=== PATIENT | male | born 1970 | race African-American/Black ===

== ENCOUNTER 2023-10-26 19:49 | Inpatient (IN) | payer SELFPAY ==
[~2023-10-26] VITALS: Ht 162.6 cm; Wt 74.9 kg
[2023-10-26 20:40] LABS: BASO % 0.4 % (0.0-1.0); EOS # 0.1 10^3/uL (0.0-0.5); EOS % 1.6 % (0.0-3.0); HEMATOCRIT 51.3 % (42.0-52.0); HEMOGLOBIN 17.2 g/dl (13.5-17.5); LYMPH % 59.6 % (24.0-44.0); MEAN CORPUSCULAR HEMOGLOBIN 27.8 pg (27.0-33.0); MEAN CORPUSCULAR HGB CONC 33.5 g/dl (32.0-36.5); MEAN CORPUSCULAR VOLUME 82.9 fl (80.0-96.0); MONO # 0.6 10^3/uL (0.0-0.8); MONO % 9.3 % (2.0-8.0); NEUTROPHILS # 1.9 10^3/uL (1.5-8.5); PLATELET COUNT, AUTOMATED 279 10^3/uL (150-450); RED BLOOD COUNT 6.19 10^6/uL (4.30-6.10); WHITE BLOOD COUNT 6.7 10^3/uL (4.0-10.0)
[2023-10-26 21:06] LABS: CK-MB VALUE MASS 1.1 NG/ML (<3.6)
[2023-10-26 21:08] LABS: ALBUMIN 3.8 G/DL (3.2-5.2); ALKALINE PHOSPHATASE 58 U/L (46-116); ALT/SGPT 66 U/L (7.0-40); AST/SGOT 26 U/L (<34); BILIRUBIN,DIRECT 0.2 MG/DL (<0.4); BILIRUBIN,TOTAL 0.6 MG/DL (0.3-1.2); BLOOD UREA NITROGEN 12 MG/DL (9-23); CALCIUM LEVEL 10.3 MG/DL (8.5-10.1); CARBON DIOXIDE LEVEL 30 MMOL/L (20-31); CHLORIDE LEVEL 105 MMOL/L (98-107); CREATININE FOR GFR 1.02 MG/DL (0.70-1.30); GLOMERULAR FILTRATION RATE > 60.0 (>56); GLUCOSE, FASTING 84 MG/DL (60-100); POTASSIUM SERUM 4.1 MMOL/L (3.5-5.1); SODIUM LEVEL 139 MMOL/L (136-145); TOTAL PROTEIN 7.7 G/DL (5.7-8.2)
[2023-10-26 21:10] LABS: THYROID STIMULATING HORMONE 2.905 uIU/ML (0.55-4.78)
[2023-10-26 21:12] LABS: CPK CREATINE PHOSPHOKINASE 131 U/L (46-171); MB/CK RELATIVE INDEX 0.83 (< OR =4)
[2023-10-26] MEDS: hydrALAZINE 20MG/ML 1ML VIAL IV ONE (21:16)
[2023-10-26] MEDS: hydrALAZINE 20MG/ML 1ML VIAL IV STA (22:24)
[2023-10-26] MEDS ORDERED: ISOVUE-370 76% 100ML VIAL As Ordered ONE (23:33)
[2023-10-27] MEDS: ASPIRIN 81MG CHEW TABLET PO ONE (02:22)
[2023-10-27] MEDS ORDERED: LABETALOL 100MG/20ML VIAL As Ordered ONE (02:36)
[2023-10-27] MEDS: LABETALOL 100MG/20ML VIAL IV STA (02:48)
[2023-10-27] MEDS ORDERED: hydrALAZINE 20MG/ML 1ML VIAL IV PRN (07:20)
[2023-10-27 07:39] LABS: CHOLESTEROL RISK RATIO 3.13 (<5); HDL CHOLESTEROL 34.5 MG/DL (>40); LDL CHOLESTEROL 53.1 MG/DL (<100); NON-HDL-C 73.5 MG/DL
[2023-10-27 08:49] LABS: INR 1.06; PARTIAL THROMBOPLASTIN TIME 26.9 SECONDS (24.8-34.2); PROTHROMBIN TIME 13.5 SECONDS (12.5-14.5)
[2023-10-27] MEDS ORDERED: ASPIRIN 325 MG TAB FT SCH (09:00)
[2023-10-27] MEDS: ATORVASTATIN 20 MG TAB PO SCH (09:20)
[2023-10-27] MEDS: DOCUSATE SODIUM 100MG CAPSULE PO SCH (09:20)
[2023-10-27] MEDS ORDERED: MED REC CURRENTLY UNOBTAINABLE XX SCH (10:35)
[2023-10-27] MEDS: hydrALAZINE 20MG/ML 1ML VIAL IV ONE (12:09)
[2023-10-27] MEDS ORDERED: IBUP200C25 PO (14:02)
[2023-10-27] MEDS ORDERED: ASPI81TA26 PO (14:02)
[2023-10-27] MEDS ORDERED: HYDR-3490 PO (14:02)
[2023-10-27] MEDS ORDERED: AMLO1TAB25 PO (14:02)
[2023-10-27] MEDS ORDERED: OMEP-173 PO (14:02)
[2023-10-27] MEDS ORDERED: CARV3.12 PO (14:02)
[2023-10-27] MEDS ORDERED: HOME MED LIST COMPLETE! XX SCH (14:05)
[2023-10-27 14:53] VITALS: BP 175/99; TEMP 97.3; O2SAT 99
[2023-10-27 15:32] VITALS: BP 167/93
[2023-10-27] MEDS: ENOXAPARIN 40MG/0.4ML SYRINGE (J1650 PER 10MG) SC SCH (15:33)
[2023-10-27 20:15] VITALS: BP 155/97; TEMP 98.1; O2SAT 99
[2023-10-27 23:19] VITALS: BP 132/82; TEMP 98.2; O2SAT 98
[2023-10-28 03:28] VITALS: BP 134/79; TEMP 98.3; O2SAT 99
[2023-10-28 06:11] LABS: HEMOGLOBIN 17.2 g/dl (13.5-17.5); MEAN CORPUSCULAR HEMOGLOBIN 27.3 pg (27.0-33.0); MEAN CORPUSCULAR HGB CONC 33.1 g/dl (32.0-36.5); MEAN CORPUSCULAR VOLUME 82.4 fl (80.0-96.0); PLATELET COUNT, AUTOMATED 283 10^3/uL (150-450); RED BLOOD COUNT 6.31 10^6/uL (4.30-6.10); WHITE BLOOD COUNT 6.7 10^3/uL (4.0-10.0)
[2023-10-28 06:26] LABS: ALBUMIN 3.8 G/DL (3.2-5.2); ALKALINE PHOSPHATASE 60 U/L (46-116); ALT/SGPT 56 U/L (7.0-40); AST/SGOT 26 U/L (<34); BILIRUBIN,TOTAL 1.1 MG/DL (0.3-1.2); BLOOD UREA NITROGEN 23 MG/DL (9-23); CALCIUM LEVEL 9.5 MG/DL (8.5-10.1); CARBON DIOXIDE LEVEL 26 MMOL/L (20-31); CHLORIDE LEVEL 105 MMOL/L (98-107); CREATININE FOR GFR 1.38 MG/DL (0.70-1.30); GLOMERULAR FILTRATION RATE > 60.0 (>56); GLUCOSE, FASTING 115 MG/DL (60-100); POTASSIUM SERUM 4.2 MMOL/L (3.5-5.1); SODIUM LEVEL 139 MMOL/L (136-145); TOTAL PROTEIN 7.3 G/DL (5.7-8.2)
[2023-10-28 07:47] VITALS: BP 126/71; TEMP 97.8; O2SAT 98
[2023-10-28] MEDS ORDERED: ASPIRIN 325 MG TAB PO SCH (09:00)
[2023-10-28] MEDS: METOPROLOL TART 25 MG TABLET PO SCH (09:17)
[2023-10-28] MEDS: INFLUENZA QUADRIVALENT PF VACCINE 0.5ML SYRINGE IM.IMMUN ONE (09:28)
[2023-10-28] MEDS: ASPIRIN 81MG ENTERIC TABLET PO SCH (09:33)
[2023-10-28 11:58] VITALS: BP 132/81; TEMP 97.4; O2SAT 98
[2023-10-28 16:13] VITALS: BP 141/89; TEMP 98.1; O2SAT 99
[2023-10-28 18:39] VITALS: BP 154/93; TEMP 98.2; O2SAT 100
[2023-10-28] MEDS: ACETAMINOPHEN TAB 650MG DOSE (2X325MG) PO ONE (22:44)
[2023-10-28 23:34] VITALS: BP 127/85; TEMP 97.5; O2SAT 98
[2023-10-29] VITALS: BP 127/85; TEMP 97.5; O2SAT 98
[2023-10-29 04:06] VITALS: BP 142/93; TEMP 97.9; O2SAT 98
[2023-10-29 06:26] LABS: HEMATOCRIT 52.5 % (42.0-52.0); HEMOGLOBIN 17.3 g/dl (13.5-17.5); MEAN CORPUSCULAR HEMOGLOBIN 27.7 pg (27.0-33.0); PLATELET COUNT, AUTOMATED 269 10^3/uL (150-450); RED BLOOD COUNT 6.25 10^6/uL (4.30-6.10); WHITE BLOOD COUNT 6.9 10^3/uL (4.0-10.0)
[2023-10-29 06:50] LABS: ALBUMIN 3.8 G/DL (3.2-5.2); ALKALINE PHOSPHATASE 60 U/L (46-116); ALT/SGPT 57 U/L (7.0-40); AST/SGOT 25 U/L (<34); BILIRUBIN,TOTAL 0.9 MG/DL (0.3-1.2); BLOOD UREA NITROGEN 25 MG/DL (9-23); CALCIUM LEVEL 9.6 MG/DL (8.5-10.1); CARBON DIOXIDE LEVEL 27 MMOL/L (20-31); CHLORIDE LEVEL 106 MMOL/L (98-107); CREATININE FOR GFR 1.18 MG/DL (0.70-1.30); GLOMERULAR FILTRATION RATE > 60.0 (>56); GLUCOSE, FASTING 111 MG/DL (60-100); POTASSIUM SERUM 4.3 MMOL/L (3.5-5.1); SODIUM LEVEL 139 MMOL/L (136-145); TOTAL PROTEIN 7.4 G/DL (5.7-8.2)
[2023-10-29] MEDS ORDERED: ASPI81TA26 PO (06:51)
[2023-10-29] MEDS ORDERED: ATOR1TAB21 PO (06:51)
[2023-10-29] MEDS ORDERED: METO1TAB87 PO (06:51)
[2023-10-29] MEDS ORDERED: AMLO1TAB25 PO (06:51)
[2023-10-29] MEDS ORDERED: OMEP-173 PO (06:51)
[2023-10-29 07:32] VITALS: BP 150/96; TEMP 98; O2SAT 100
[2023-10-29 09:40] VITALS: BP 180/99
[2023-10-29 12:00] VITALS: BP 149/92; TEMP 97.8; O2SAT 97
== END 2023-10-29 15:06 | disposition home or self-care (01) | DRG 45 ==
LOC: M ED 19:49 → M ED INP 10-27 03:38 → ENRESERV 10-27 13:49 → M PCU 10-27 14:42
PROVIDERS: ADMIT Internal Medicine; ATTEND Internal Medicine
PROC: B246ZZZ Ultrasonography of Right and Left Heart (ICD-10-PCS; principal; 2023-10-28)
DX: I63.9 Cerebral infarction, unspecified (principal); I10 Essential (primary) hypertension; I16.1 Hypertensive emergency; R20.2 Paresthesia of skin; Z86.73 Personal history of transient ischemic attack (TIA), and cerebral infarction without residual deficits

== ENCOUNTER 2023-12-13 08:02 | Emergency (ER) | payer OTHER, SELFPAY ==
[~2023-12-13] VITALS: Ht 182.9 cm; Wt 73.6 kg
[~2023-12-13 08:02] MED LIST: AMLO1TAB25 PO; ASPI81TA26 PO; ATOR1TAB21 PO; CARV3.12 PO; HYDR-3490 PO; IBUP200C25 PO; METO1TAB87 PO; OMEP-173 PO
[2023-12-13 12:20] LABS: BASO % 0.4 % (0.0-1.0); EOS % 0.9 % (0.0-3.0); HEMATOCRIT 46.2 % (42.0-52.0); HEMOGLOBIN 15.4 g/dl (13.5-17.5); LYMPH # 2.3 10^3/uL (1.5-5.0); LYMPH % 51.8 % (24.0-44.0); MEAN CORPUSCULAR HEMOGLOBIN 27.2 pg (27.0-33.0); MEAN CORPUSCULAR HGB CONC 33.3 g/dl (32.0-36.5); MEAN CORPUSCULAR VOLUME 81.5 fl (80.0-96.0); MONO # 0.5 10^3/uL (0.0-0.8); MONO % 10.4 % (2.0-8.0); NEUTROPHILS # 1.6 10^3/uL (1.5-8.5); NEUTROPHILS % 36.3 % (36.0-66.0); PLATELET COUNT, AUTOMATED 268 10^3/uL (150-450); RED BLOOD COUNT 5.67 10^6/uL (4.30-6.10); WHITE BLOOD COUNT 4.5 10^3/uL (4.0-10.0)
[2023-12-13 12:31] LABS: INR 1.11; PARTIAL THROMBOPLASTIN TIME 26.2 SECONDS (24.8-34.2)
[2023-12-13] MEDS ORDERED: ISOVUE-370 76% 100ML VIAL As Ordered ONE (12:35)
[2023-12-13 12:49] LABS: URIC ACID 6.3 MG/DL (3.7-9.2)
[2023-12-13 12:50] LABS: CK-MB VALUE MASS < 1.0 NG/ML (<3.6)
[2023-12-13 12:52] LABS: CPK CREATINE PHOSPHOKINASE 206 U/L (46-171); MB/CK RELATIVE INDEX 0.48 (< OR =4)
[2023-12-13 12:53] LABS: ALBUMIN 3.7 G/DL (3.2-5.2); ALKALINE PHOSPHATASE 58 U/L (46-116); ALT/SGPT 62 U/L (7.0-40); AST/SGOT 26 U/L (<34); BLOOD UREA NITROGEN 11 MG/DL (9-23); CARBON DIOXIDE LEVEL 28 MMOL/L (20-31); CHLORIDE LEVEL 106 MMOL/L (98-107); CREATININE FOR GFR 1.08 MG/DL (0.70-1.30); GLOMERULAR FILTRATION RATE > 60.0 (>56); GLUCOSE, FASTING 103 MG/DL (60-100); MAGNESIUM LEVEL 2.1 MG/DL (1.8-2.4); POTASSIUM SERUM 4.1 MMOL/L (3.5-5.1); SODIUM LEVEL 140 MMOL/L (136-145); TOTAL PROTEIN 6.8 G/DL (5.7-8.2)
[2023-12-13 14:07] LABS: CK-MB VALUE MASS 1.1 NG/ML (<3.6); MB/CK RELATIVE INDEX 0.54 (< OR =4)
[2023-12-13] MEDS: ACETAMINOPHEN *IV* 1,000 MG in IV 1 EA IV ONE (14:39)
[2023-12-13 15:09] LABS: CK-MB VALUE MASS 1.5 NG/ML (<3.6)
[2023-12-13 15:12] LABS: MB/CK RELATIVE INDEX 0.68 (< OR =4)
[2023-12-13] MEDS ORDERED: NAPR-837 PO (15:52)
[2023-12-13] MEDS ORDERED: LIDO5DIS41 TOP (15:52)
[2023-12-13] MEDS ORDERED: PEPC40TA12 PO (15:52)
[2023-12-13] MEDS ORDERED: PROT1TAB2 PO (15:52)
[2023-12-13 16:21] VITALS: BP 160/97; TEMP 97.4; O2SAT 97
== END 2023-12-13 16:22 | disposition home or self-care (01) ==
LOC: M ED 08:02
DX: M79.661 Pain in right lower leg (principal); K21.9 Gastro-esophageal reflux disease without esophagitis; I10 Essential (primary) hypertension; E78.5 Hyperlipidemia, unspecified; Z86.73 Personal history of transient ischemic attack (TIA), and cerebral infarction without residual deficits
CPT/HCPCS: 70450; 70496; 70498; 71045; 72040; 72110; 73564; 80047; 80053; 82550; 82553; 83735; 84484; 84550; 85025; 85610; 85730; 93005; 93041; 94760; 96365; 99285; J0131; Q9967

== ENCOUNTER 2024-01-27 12:21 | Inpatient (IN) | payer OTHER, SELFPAY ==
[~2024-01-27] VITALS: Ht 165.1 cm; Wt 72.8 kg
[2024-01-27] MEDS: CHLORTHALIDONE 12.5MG PER 1/2 TABLET PO SCH (09:00)
[2024-01-27] MEDS: PANTOPRAZOLE 40MG TAB (PROTONIX) PO SCH (09:00)
[~2024-01-27 12:21] MED LIST changes: +LIDO5DIS41 TOP; +NAPR-837 PO; +PEPC40TA12 PO; +PROT1TAB2 PO
[2024-01-27] MEDS ORDERED: ISOVUE-370 76% 100ML VIAL As Ordered ONE (14:22)
[2024-01-27 14:44] LABS: BASO % 0.5 % (0.0-1.0); EOS # 0.1 10^3/uL (0.0-0.5); EOS % 1.1 % (0.0-3.0); LYMPH % 53.9 % (24.0-44.0); MEAN CORPUSCULAR HEMOGLOBIN 27.2 pg (27.0-33.0); MEAN CORPUSCULAR HGB CONC 33.3 g/dl (32.0-36.5); MEAN CORPUSCULAR VOLUME 81.6 fl (80.0-96.0); MONO # 0.4 10^3/uL (0.0-0.8); MONO % 7.9 % (2.0-8.0); NEUTROPHILS % 36.4 % (36.0-66.0); PLATELET COUNT, AUTOMATED 241 10^3/uL (150-450); RED BLOOD COUNT 5.88 10^6/uL (4.30-6.10); WHITE BLOOD COUNT 5.6 10^3/uL (4.0-10.0)
[2024-01-27] MEDS: METOPROLOL TART 50 MG TAB PO ONE (14:52)
[2024-01-27 14:56] LABS: INR 1.12; PARTIAL THROMBOPLASTIN TIME 27.1 SECONDS (24.8-34.2); PROTHROMBIN TIME 14.1 SECONDS (12.5-14.5)
[2024-01-27 15:11] LABS: ALBUMIN 3.9 G/DL (3.2-5.2); BILIRUBIN,DIRECT 0.3 MG/DL (<0.4); BILIRUBIN,TOTAL 0.8 MG/DL (0.3-1.2); TOTAL PROTEIN 6.9 G/DL (5.7-8.2)
[2024-01-27 15:14] LABS: FREE T4 1.11 NG/DL (0.89-1.76); THYROID STIMULATING HORMONE 1.171 uIU/ML (0.55-4.78)
[2024-01-27] MEDS: hydrALAZINE 20MG/ML 1ML VIAL IV STA ×2 (15:40→16:50)
[2024-01-27] MEDS: ACETAMINOPHEN 325 MG TAB PO ONE (18:04)
[2024-01-27] MEDS ORDERED: MOM 30ML SUSPENSION UDC PO PRN (19:35)
[2024-01-27] MEDS ORDERED: ASPI-655 PO (22:03)
[2024-01-27] MEDS ORDERED: NAPR-885 PO (22:03)
[2024-01-27] MEDS ORDERED: FAMO40TA3 PO (22:03)
[2024-01-27] MEDS ORDERED: METO50TA7 PO (22:03)
[2024-01-27] MEDS ORDERED: PANT-23 PO (22:03)
[2024-01-27] MEDS ORDERED: ATOR40TA75 PO (22:03)
[2024-01-27] MEDS ORDERED: HOME MED LIST COMPLETE! XX SCH (22:05)
[2024-01-27] MEDS: DOCUSATE SODIUM 100MG CAPSULE PO SCH (22:09)
[2024-01-27] MEDS: METOPROLOL TART 50 MG TAB PO SCH (22:09)
[2024-01-27] MEDS: **hydrALAZINE** 10 MG TAB PO SCH (22:10)
[2024-01-28] MEDS ORDERED: METOPROLOL TART 25 MG TABLET PO ONE (09:00)
[2024-01-28] MEDS: CLOPIDOGREL 75 MG TAB PO SCH (09:00)
[2024-01-28] MEDS: ATORVASTATIN 20 MG TAB PO SCH (09:00)
[2024-01-28] MEDS ORDERED: LIDOCAINE 5% (LIDODERM) PATCH As Ordered ONE (10:18)
[2024-01-28] MEDS ORDERED: FAMOTIDINE 20 MG TAB As Ordered ONE (10:19)
[2024-01-28] MEDS ORDERED: ATORVASTATIN 20 MG TAB As Ordered ONE (10:19)
[2024-01-28] MEDS ORDERED: PANTOPRAZOLE 40MG TAB (PROTONIX) As Ordered ONE (10:19)
[2024-01-28] MEDS ORDERED: METOPROLOL SUCC *XL* 25MG TAB (TopROL *XL*) As Ordered ONE (10:20)
[2024-01-28] MEDS ORDERED: ASPIRIN 81MG ENTERIC TABLET As Ordered ONE (10:20)
[2024-01-28] MEDS: METOPROLOL SUCC *XL* 25MG TAB (TopROL *XL*) PO ONE (10:27)
[2024-01-28] MEDS: FAMOTIDINE 20 MG TAB PO ONE (10:27)
[2024-01-28] MEDS: LIDOCAINE 5% (LIDODERM) PATCH TD ONE (10:27)
[2024-01-28] MEDS: ASPIRIN 81MG CHEW TABLET PO SCH (10:27)
[2024-01-28 11:35] VITALS: BP 158/100; TEMP 98.1; O2SAT 98
[2024-01-28 12:00] VITALS: O2SAT 98
[2024-01-28] MEDS: ENOXAPARIN 40MG/0.4ML SYRINGE (J1650 PER 10MG) SC SCH (15:16)
[2024-01-28 15:20] LABS: BLOOD UREA NITROGEN 15 MG/DL (9-23); CALCIUM LEVEL 9.3 MG/DL (8.5-10.1); CARBON DIOXIDE LEVEL 29 MMOL/L (20-31); CHLORIDE LEVEL 108 MMOL/L (98-107); CREATININE FOR GFR 1.12 MG/DL (0.70-1.30); GLOMERULAR FILTRATION RATE > 60.0 (>56); GLUCOSE, FASTING 159 MG/DL (60-100); POTASSIUM SERUM 3.5 MMOL/L (3.5-5.1); SODIUM LEVEL 141 MMOL/L (136-145)
[2024-01-28] MEDS: PERCOCET 5MG/325MG TAB PO PRN (16:05)
[2024-01-28 18:00] VITALS: BP 158/98; TEMP 98.5; O2SAT 96
[2024-01-28] MEDS: ASPIRIN 325 MG TAB PO ONE (18:58)
[2024-01-28 20:00] VITALS: BP 180/96; TEMP 98.1; O2SAT 77; O2SAT 97
[2024-01-28] MEDS: **hydrALAZINE HCL** 25 MG TAB PO SCH (23:48)
[2024-01-29] VITALS (8 sets, daily range): BP systolic 158–190; BP diastolic 98–118; TEMP 97.7–98.2; O2SAT 93–99
[2024-01-29 07:24] LABS: CHOLESTEROL LEVEL 123 MG/DL (<200); CHOLESTEROL RISK RATIO 3.64 (<5); HDL CHOLESTEROL 33.7 MG/DL (>40); LDL CHOLESTEROL 73.5 MG/DL (<100); NON-HDL-C 89.3 MG/DL; TRIGLYCERIDES LEVEL 79 MG/DL (<150)
[2024-01-29] MEDS: GABAPENTIN 100 MG CAP PO SCH ×2 (08:58→17:50)
[2024-01-29] MEDS: METOPROLOL TART 25 MG TABLET PO SCH (08:59)
[2024-01-29] MEDS ORDERED: METOPROLOL TART 50 MG TAB PO SCH (09:00)
[2024-01-29 09:14] LABS: BLOOD UREA NITROGEN 15 MG/DL (9-23); CALCIUM LEVEL 9.5 MG/DL (8.5-10.1); CARBON DIOXIDE LEVEL 27 MMOL/L (20-31); CHLORIDE LEVEL 107 MMOL/L (98-107); GLOMERULAR FILTRATION RATE > 60.0 (>56); GLUCOSE, FASTING 101 MG/DL (60-100); POTASSIUM SERUM 3.7 MMOL/L (3.5-5.1); SODIUM LEVEL 140 MMOL/L (136-145)
[2024-01-29] MEDS: **hydrALAZINE** 50 MG TAB PO SCH (11:38)
[2024-01-29] MEDS ORDERED: **hydrALAZINE** 50 MG TAB PO SCH (15:00)
[2024-01-29] MEDS: SUCRALFATE 1 GM TAB PO SCH (17:50)
[2024-01-29] MEDS: **hydrALAZINE HCL** 25 MG TAB PO SCH (17:50)
[2024-01-29] MEDS: LIDOCAINE 5% (LIDODERM) PATCH TD SCH (18:30)
[2024-01-29] MEDS: FAMOTIDINE 20 MG TAB PO SCH (20:40)
[2024-01-30] VITALS (13 sets, daily range): BP systolic 160–195; BP diastolic 84–122; TEMP 97.5–98.4; O2SAT 94–100
[2024-01-30] MEDS: CHLORTHALIDONE 25 MG TAB PO SCH (04:29)
[2024-01-30] MEDS: PERCOCET 5MG/325MG TAB PO PRN (06:04)
[2024-01-30 08:15] LABS: BASO % 0.4 % (0.0-1.0); EOS # 0.1 10^3/uL (0.0-0.5); EOS % 1.2 % (0.0-3.0); HEMATOCRIT 53.7 % (42.0-52.0); HEMOGLOBIN 17.6 g/dl (13.5-17.5); LYMPH # 2.4 10^3/uL (1.5-5.0); LYMPH % 47.8 % (24.0-44.0); MEAN CORPUSCULAR HEMOGLOBIN 27.1 pg (27.0-33.0); MEAN CORPUSCULAR HGB CONC 32.8 g/dl (32.0-36.5); MEAN CORPUSCULAR VOLUME 82.6 fl (80.0-96.0); MONO # 0.4 10^3/uL (0.0-0.8); MONO % 8.5 % (2.0-8.0); NEUTROPHILS # 2.1 10^3/uL (1.5-8.5); NEUTROPHILS % 41.9 % (36.0-66.0); PLATELET COUNT, AUTOMATED 273 10^3/uL (150-450)
[2024-01-30 08:41] LABS: BLOOD UREA NITROGEN 12 MG/DL (9-23); CALCIUM LEVEL 9.6 MG/DL (8.5-10.1); CARBON DIOXIDE LEVEL 25 MMOL/L (20-31); CHLORIDE LEVEL 105 MMOL/L (98-107); CREATININE FOR GFR 0.94 MG/DL (0.70-1.30); GLOMERULAR FILTRATION RATE > 60.0 (>56); GLUCOSE, FASTING 101 MG/DL (60-100); MAGNESIUM LEVEL 1.9 MG/DL (1.8-2.4); SODIUM LEVEL 138 MMOL/L (136-145)
[2024-01-30] MEDS: ACETAMINOPHEN TAB 650MG DOSE (2X325MG) PO PRN (08:47)
[2024-01-30] MEDS ORDERED: CHLORTHALIDONE 25 MG TAB PO SCH (09:00)
[2024-01-30] MEDS: hydrALAZINE 20MG/ML 1ML VIAL IV PRN ×2 (10:12→13:02)
[2024-01-30] MEDS: BENZONATATE 100MG CAPSULE PO SCH (10:21)
[2024-01-30] MEDS: MAALOX 30 ML SUSP *UDC PO PRN (10:40)
[2024-01-30] MEDS: **hydrALAZINE** 50 MG TAB PO SCH (12:00)
[2024-01-30] MEDS: SUCRALFATE SUSP 1GM/10ML UD PO SCH (12:00)
[2024-01-30] MEDS ORDERED: cloNIDine 0.2 MG TAB PO SCH (12:00)
[2024-01-30] MEDS ORDERED: cloNIDine 0.1MG TABLET PO SCH (12:00)
[2024-01-30] MEDS: ONDANSETRON 4MG 2ML VIAL IV PRN (12:44)
[2024-01-31 03:36] VITALS: BP 140/70; TEMP 98; O2SAT 97
[2024-01-31 04:49] LABS: BASO % 0.4 % (0.0-1.0); EOS % 0.6 % (0.0-3.0); HEMATOCRIT 54.1 % (42.0-52.0); HEMOGLOBIN 17.9 g/dl (13.5-17.5); LYMPH # 3.2 10^3/uL (1.5-5.0); LYMPH % 44.4 % (24.0-44.0); MEAN CORPUSCULAR HEMOGLOBIN 26.8 pg (27.0-33.0); MEAN CORPUSCULAR HGB CONC 33.1 g/dl (32.0-36.5); MEAN CORPUSCULAR VOLUME 81.1 fl (80.0-96.0); MONO # 0.7 10^3/uL (0.0-0.8); MONO % 9.1 % (2.0-8.0); NEUTROPHILS # 3.3 10^3/uL (1.5-8.5); NEUTROPHILS % 45.4 % (36.0-66.0); PLATELET COUNT, AUTOMATED 304 10^3/uL (150-450); RED BLOOD COUNT 6.67 10^6/uL (4.30-6.10); WHITE BLOOD COUNT 7.2 10^3/uL (4.0-10.0)
[2024-01-31 04:56] LABS: CK-MB VALUE MASS 4.6 NG/ML (<3.6)
[2024-01-31 04:57] LABS: MB/CK RELATIVE INDEX 2.32 (< OR =4)
[2024-01-31 05:10] LABS: ALBUMIN 3.9 G/DL (3.2-5.2); BILIRUBIN,TOTAL 0.9 MG/DL (0.3-1.2); CALCIUM LEVEL 9.6 MG/DL (8.5-10.1); CREATININE FOR GFR 1.41 MG/DL (0.70-1.30); GLOMERULAR FILTRATION RATE 55.6 (>56); MAGNESIUM LEVEL 2.1 MG/DL (1.8-2.4); POTASSIUM SERUM 3.9 MMOL/L (3.5-5.1); TOTAL PROTEIN 7.1 G/DL (5.7-8.2)
[2024-01-31 07:39] VITALS: BP 121/74; TEMP 98; O2SAT 99
[2024-01-31 08:00] LABS: CK-MB VALUE MASS 4.2 NG/ML (<3.6)
[2024-01-31 08:02] LABS: MB/CK RELATIVE INDEX 1.62 (< OR =4)
[2024-01-31] MEDS ORDERED: lisinopriL 40MG TAB PO SCH (09:00)
[2024-01-31] MEDS: NS 500 ML IV ONE (09:41)
[2024-01-31 11:51] VITALS: BP 132/82; TEMP 98.4; O2SAT 96
[2024-01-31 12:44] LABS: CREATININE FOR GFR 1.35 MG/DL (0.70-1.30); GLOMERULAR FILTRATION RATE 58.4 (>56); POTASSIUM SERUM 4.1 MMOL/L (3.5-5.1)
[2024-01-31 15:47] VITALS: BP 133/76; TEMP 98.1; O2SAT 86
[2024-01-31 19:42] VITALS: BP 129/72; TEMP 98.4; O2SAT 97
[2024-02-01] VITALS (8 sets, daily range): BP systolic 130–177; BP diastolic 66–109; TEMP 97.1–98.2; O2SAT 97–98
[2024-02-01] MEDS: **hydrALAZINE** 50 MG TAB PO SCH (14:00)
[2024-02-01] MEDS: METOPROLOL TART 12.5 MG PER 1/2 TAB PO SCH (18:00)
[2024-02-02 04:03] VITALS: BP 154/91; TEMP 97.1; O2SAT 99
[2024-02-02 05:30] VITALS: BP 171/99
[2024-02-02] MEDS ORDERED: GABA-1171 PO (07:15)
[2024-02-02] MEDS ORDERED: CLOP75TA2 PO (07:15)
[2024-02-02] MEDS ORDERED: PANT40TA29 PO (07:15)
[2024-02-02] MEDS ORDERED: PERCOCET PO (07:15)
[2024-02-02] MEDS ORDERED: HYDR50TA46 PO ×2 (07:15→09:00)
[2024-02-02] MEDS ORDERED: AMLO1TAB25 PO (07:15)
[2024-02-02] MEDS ORDERED: CLAR500T97 PO (07:23)
[2024-02-02] MEDS ORDERED: AMOX500T PO (07:23)
[2024-02-02] MEDS ORDERED: BACI1CAP PO (07:23)
[2024-02-02] MEDS ORDERED: METO25TA4 PO (07:27)
[2024-02-02] MEDS ORDERED: SELF1KIT MC (07:27)
[2024-02-02 08:47] VITALS: TEMP 97.4; O2SAT 99
[2024-02-02 09:13] LABS: BASO % 0.8 % (0.0-1.0); EOS % 0.8 % (0.0-3.0); HEMATOCRIT 53.9 % (42.0-52.0); HEMOGLOBIN 17.6 g/dl (13.5-17.5); LYMPH # 2.1 10^3/uL (1.5-5.0); LYMPH % 55.2 % (24.0-44.0); MEAN CORPUSCULAR HEMOGLOBIN 27.2 pg (27.0-33.0); MEAN CORPUSCULAR HGB CONC 32.7 g/dl (32.0-36.5); MEAN CORPUSCULAR VOLUME 83.4 fl (80.0-96.0); MONO # 0.4 10^3/uL (0.0-0.8); MONO % 10.6 % (2.0-8.0); NEUTROPHILS # 1.2 10^3/uL (1.5-8.5); NEUTROPHILS % 32.6 % (36.0-66.0); PLATELET COUNT, AUTOMATED 310 10^3/uL (150-450); RED BLOOD COUNT 6.46 10^6/uL (4.30-6.10); WHITE BLOOD COUNT 3.8 10^3/uL (4.0-10.0)
[2024-02-02 09:39] LABS: BLOOD UREA NITROGEN 17 MG/DL (9-23); CALCIUM LEVEL 9.8 MG/DL (8.5-10.1); CARBON DIOXIDE LEVEL 27 MMOL/L (20-31); CHLORIDE LEVEL 104 MMOL/L (98-107); GLOMERULAR FILTRATION RATE > 60.0 (>56); GLUCOSE, FASTING 121 MG/DL (60-100); POTASSIUM SERUM 4.2 MMOL/L (3.5-5.1); SODIUM LEVEL 137 MMOL/L (136-145)
[2024-02-02 10:11] VITALS: BP 169/93
[2024-02-02 11:54] VITALS: BP 168/96; TEMP 98.1; O2SAT 97
[2024-02-02 12:58] VITALS: BP 149/86
[2024-02-02] MEDS ORDERED: GAVICHW3 PO (14:00)
[2024-02-02] MEDS ORDERED: PANT-23 PO (14:01)
[2024-02-02] MEDS ORDERED: METOPROLOL TART 25 MG TABLET PO SCH (18:00)
[2024-02-03] MEDS ORDERED: METO25TA4 PO (23:43)
[2024-02-03] MEDS ORDERED: BACI1CAP PO (23:43)
[2024-02-03] MEDS ORDERED: GABA-1171 PO (23:43)
[2024-02-03] MEDS ORDERED: HYDR100T26 PO (23:43)
[2024-02-03] MEDS ORDERED: CLAR500T97 PO (23:43)
[2024-02-03] MEDS ORDERED: PERCOCET PO (23:43)
[2024-02-03] MEDS ORDERED: AMOX500C PO (23:43)
[2024-02-03] MEDS ORDERED: CLOP75TA99 PO (23:43)
== END 2024-02-02 15:25 | disposition home or self-care (01) | DRG 45 ==
LOC: EDBD 12:21 → M ED 12:21 → M ED INP 19:31 → M MSPAV 01-28 11:30 → M PCU 01-30 07:52 → OBSVTOIN 01-31 14:10
PROVIDERS: ADMIT Preventive Medicine Undersea and Hyperbaric Medicine; ATTEND Student in an Organized Health Care Education/Training Program
PROC: B246ZZZ Ultrasonography of Right and Left Heart (ICD-10-PCS; principal; 2024-01-28)
DX: I63.81 Other cerebral infarction due to occlusion or stenosis of small artery (principal); N17.9 Acute kidney failure, unspecified; I69.351 Hemiplegia and hemiparesis following cerebral infarction affecting right dominant side; G62.9 Polyneuropathy, unspecified; I16.0 Hypertensive urgency; I10 Essential (primary) hypertension; K21.9 Gastro-esophageal reflux disease without esophagitis; E78.5 Hyperlipidemia, unspecified; Z79.82 Long term (current) use of aspirin; Z79.899 Other long term (current) drug therapy; Z91.148 Patient's other noncompliance with medication regimen for other reason; T50.2X5A Adverse effect of carbonic-anhydrase inhibitors, benzothiadiazides and other diuretics, initial encounter; T46.4X5A Adverse effect of angiotensin-converting-enzyme inhibitors, initial encounter; K29.70 Gastritis, unspecified, without bleeding; J02.9 Acute pharyngitis, unspecified

== ENCOUNTER 2024-02-03 15:51 | Observation (INO) | payer OTHER ==
[~2024-02-03] VITALS: Ht 170.2 cm; Wt 74.2 kg
[~2024-02-03 15:51] MED LIST changes: +AMOX500T PO; +ASPI-655 PO; +ATOR40TA75 PO; +BACI1CAP PO; +CLAR500T97 PO; +CLOP75TA2 PO; +FAMO40TA3 PO; +GABA-1171 PO; +GAVICHW3 PO; +HYDR50TA46 PO; +METO25TA4 PO; +METO50TA7 PO; +NAPR-885 PO; +PANT-23 PO; +PANT40TA29 PO; +PERCOCET PO; +SELF1KIT MC
[2024-02-03 16:22] LABS: BASO % 0.4 % (0.0-1.0); EOS # 0.1 10^3/uL (0.0-0.5); EOS % 1.3 % (0.0-3.0); HEMATOCRIT 48.1 % (42.0-52.0); LYMPH # 2.4 10^3/uL (1.5-5.0); LYMPH % 52.8 % (24.0-44.0); MEAN CORPUSCULAR HEMOGLOBIN 27.9 pg (27.0-33.0); MEAN CORPUSCULAR HGB CONC 33.3 g/dl (32.0-36.5); MEAN CORPUSCULAR VOLUME 83.8 fl (80.0-96.0); MONO # 0.5 10^3/uL (0.0-0.8); MONO % 11.5 % (2.0-8.0); NEUTROPHILS # 1.6 10^3/uL (1.5-8.5); NEUTROPHILS % 33.8 % (36.0-66.0); PLATELET COUNT, AUTOMATED 277 10^3/uL (150-450); RED BLOOD COUNT 5.74 10^6/uL (4.30-6.10); WHITE BLOOD COUNT 4.6 10^3/uL (4.0-10.0)
[2024-02-03 16:54] LABS: BLOOD UREA NITROGEN 15 MG/DL (9-23); CALCIUM LEVEL 8.8 MG/DL (8.5-10.1); CARBON DIOXIDE LEVEL 29 MMOL/L (20-31); CHLORIDE LEVEL 103 MMOL/L (98-107); CK-MB VALUE MASS 2.4 NG/ML (<3.6); CREATININE FOR GFR 1.03 MG/DL (0.70-1.30); GLOMERULAR FILTRATION RATE > 60.0 (>56); GLUCOSE, FASTING 204 MG/DL (60-100); POTASSIUM SERUM 4.6 MMOL/L (3.5-5.1); SODIUM LEVEL 136 MMOL/L (136-145)
[2024-02-03 16:57] LABS: CPK CREATINE PHOSPHOKINASE 137 U/L (46-171); MB/CK RELATIVE INDEX 1.75 (< OR =4)
[2024-02-03 18:01] LABS: ALBUMIN 3.7 G/DL (3.2-5.2); BILIRUBIN,DIRECT 0.2 MG/DL (<0.4); BILIRUBIN,TOTAL 0.4 MG/DL (0.3-1.2); CK-MB VALUE MASS 2.5 NG/ML (<3.6); MB/CK RELATIVE INDEX 1.89 (< OR =4); TOTAL PROTEIN 6.6 G/DL (5.7-8.2)
[2024-02-03] MEDS: METOPROLOL TART 50 MG TAB PO ONE (19:16)
[2024-02-03] MEDS: **hydrALAZINE** 50 MG TAB PO ONE (19:16)
[2024-02-03] MEDS: CLARITHROMYCIN 250 MG TAB PO SCH (21:00)
[2024-02-03] MEDS: GABAPENTIN 100 MG CAP PO SCH (21:00)
[2024-02-03] MEDS: AMOXICILLIN 500 MG CAP PO SCH (21:00)
[2024-02-03] MEDS: LABETALOL 100MG/20ML VIAL IV STA (22:00)
[2024-02-03] MEDS ORDERED: ACETAMINOPHEN TAB 650MG DOSE (2X325MG) PO PRN (23:35)
[2024-02-03] MEDS ORDERED: MOM 30ML SUSPENSION UDC PO PRN (23:35)
[2024-02-03] MEDS ORDERED: CLAR500T97 PO (23:43)
[2024-02-03] MEDS ORDERED: PERCOCET PO (23:43)
[2024-02-03] MEDS ORDERED: METO25TA4 PO (23:43)
[2024-02-03] MEDS ORDERED: HYDR100T26 PO (23:43)
[2024-02-03] MEDS ORDERED: BACI1CAP PO (23:43)
[2024-02-03] MEDS ORDERED: AMOX500C PO (23:43)
[2024-02-03] MEDS ORDERED: CLOP75TA99 PO (23:43)
[2024-02-03] MEDS ORDERED: GABA-1171 PO (23:43)
[2024-02-03] MEDS ORDERED: HOME MED LIST COMPLETE! XX SCH (23:55)
[2024-02-04] MEDS ORDERED: PERCOCET 5MG/325MG TAB PO PRN
[2024-02-04] MEDS: LABETALOL 200 MG TAB PO SCH (00:25)
[2024-02-04 03:18] VITALS: BP 158/91; TEMP 98.1; O2SAT 98
[2024-02-04 07:28] LABS: HEMATOCRIT 47.6 % (42.0-52.0); HEMOGLOBIN 15.5 g/dl (13.5-17.5); MEAN CORPUSCULAR HEMOGLOBIN 27.1 pg (27.0-33.0); MEAN CORPUSCULAR HGB CONC 32.6 g/dl (32.0-36.5); MEAN CORPUSCULAR VOLUME 83.2 fl (80.0-96.0); PLATELET COUNT, AUTOMATED 272 10^3/uL (150-450); RED BLOOD COUNT 5.72 10^6/uL (4.30-6.10); WHITE BLOOD COUNT 3.8 10^3/uL (4.0-10.0)
[2024-02-04 08:01] LABS: BLOOD UREA NITROGEN 11 MG/DL (9-23); CALCIUM LEVEL 9.4 MG/DL (8.5-10.1); CARBON DIOXIDE LEVEL 29 MMOL/L (20-31); CHLORIDE LEVEL 104 MMOL/L (98-107); CREATININE FOR GFR 1.04 MG/DL (0.70-1.30); GLOMERULAR FILTRATION RATE > 60.0 (>56); GLUCOSE, FASTING 106 MG/DL (60-100); MAGNESIUM LEVEL 2.3 MG/DL (1.8-2.4); POTASSIUM SERUM 4.6 MMOL/L (3.5-5.1); SODIUM LEVEL 139 MMOL/L (136-145)
[2024-02-04 08:08] VITALS: BP 167/94; TEMP 97.1; O2SAT 98
[2024-02-04] MEDS ORDERED: LABETALOL 200 MG TAB PO SCH (09:00)
[2024-02-04 09:57] VITALS: BP 159/88
[2024-02-04] MEDS: ENOXAPARIN 40MG/0.4ML SYRINGE (J1650 PER 10MG) SC SCH (09:59)
[2024-02-04] MEDS: CHLORTHALIDONE 25 MG TAB PO SCH (10:00)
[2024-02-04] MEDS: LACTOBACILLUS ACIDOPHILUS CAP (BACID) PO SCH (10:00)
[2024-02-04] MEDS: METOPROLOL TART 25 MG TABLET PO SCH (10:01)
[2024-02-04] MEDS: ASPIRIN 81MG CHEW TABLET PO SCH (10:02)
[2024-02-04] MEDS: PANTOPRAZOLE 40MG TAB (PROTONIX) PO SCH (10:03)
[2024-02-04] MEDS: ATORVASTATIN 20 MG TAB PO SCH (10:03)
[2024-02-04 10:04] VITALS: BP 159/88
[2024-02-04] MEDS: **hydrALAZINE** 50 MG TAB PO SCH (10:04)
[2024-02-04] MEDS: CLOPIDOGREL 75 MG TAB PO SCH (10:04)
[2024-02-04 12:00] VITALS: BP 143/88; TEMP 97.2
[2024-02-04] MEDS ORDERED: CHLO25TA PO (12:05)
[2024-02-04] MEDS ORDERED: FAMOTIDINE 20 MG TAB PO SCH (21:00)
== END 2024-02-04 15:11 | disposition home or self-care (01) ==
LOC: M ED 15:51 → M ED INP 23:31 → M PCU 02-04 01:14
PROVIDERS: ADMIT Internal Medicine; ATTEND Internal Medicine
DX: I16.0 Hypertensive urgency (principal); Z91.148 Patient's other noncompliance with medication regimen for other reason; Z86.73 Personal history of transient ischemic attack (TIA), and cerebral infarction without residual deficits; I10 Essential (primary) hypertension; R00.0 Tachycardia, unspecified; Z79.899 Other long term (current) drug therapy; Z79.2 Long term (current) use of antibiotics; K30 Functional dyspepsia
CPT/HCPCS: 36415; 70450; 71045; 80048; 80076; 82550; 82553; 83735; 84484; 85025; 85027; 93005; 93041; 94760; 96372; 96374; 99285; J1650; J1920

== ENCOUNTER 2024-04-09 13:50 | Inpatient (IN) | payer OTHER ==
[~2024-04-09] VITALS: Ht 167.6 cm; Wt 71.5 kg
[~2024-04-09 13:50] MED LIST changes: +AMOX500C PO; +CHLO25TA PO; +CLOP75TA99 PO; +HYDR100T26 PO
[2024-04-09] MEDS ORDERED: ISOVUE-370 76% 100ML VIAL As Ordered ONE (14:12)
[2024-04-09 14:25] LABS: BASO % 0.4 % (0.0-1.0); EOS # 0.1 10^3/uL (0.0-0.5); EOS % 0.9 % (0.0-3.0); HEMATOCRIT 50.9 % (42.0-52.0); HEMOGLOBIN 16.9 g/dl (13.5-17.5); LYMPH # 3.1 10^3/uL (1.5-5.0); LYMPH % 57.2 % (24.0-44.0); MEAN CORPUSCULAR HEMOGLOBIN 27.3 pg (27.0-33.0); MEAN CORPUSCULAR HGB CONC 33.2 g/dl (32.0-36.5); MEAN CORPUSCULAR VOLUME 82.4 fl (80.0-96.0); MONO # 0.5 10^3/uL (0.0-0.8); MONO % 8.6 % (2.0-8.0); NEUTROPHILS # 1.8 10^3/uL (1.5-8.5); NEUTROPHILS % 32.7 % (36.0-66.0); PLATELET COUNT, AUTOMATED 234 10^3/uL (150-450); RED BLOOD COUNT 6.18 10^6/uL (4.30-6.10); WHITE BLOOD COUNT 5.4 10^3/uL (4.0-10.0)
[2024-04-09 14:37] LABS: INR 0.99; PARTIAL THROMBOPLASTIN TIME 25.4 SECONDS (24.8-34.2); PROTHROMBIN TIME 12.8 SECONDS (12.5-14.5)
[2024-04-09] MEDS: hydrALAZINE 20MG/ML 1ML VIAL IV STA ×3 (14:48→16:08)
[2024-04-09 15:36] LABS: BILIRUBIN,TOTAL 0.5 MG/DL (0.3-1.2); CALCIUM LEVEL 9.4 MG/DL (8.5-10.1); CREATININE FOR GFR 1.38 MG/DL (0.70-1.30); POTASSIUM SERUM 3.3 MMOL/L (3.5-5.1); TOTAL PROTEIN 7.3 G/DL (5.7-8.2)
[2024-04-09] MEDS ORDERED: SUCR1TAB56 PO (18:14)
[2024-04-09] MEDS ORDERED: LISI20TA33 PO (18:14)
[2024-04-09] MEDS ORDERED: HOME MED LIST COMPLETE! XX SCH (18:15)
[2024-04-09] MEDS: cloNIDine 0.2 MG TAB PO ONE (18:51)
[2024-04-09] MEDS: POTASSIUM CHLORIDE 10MEQ SR TABLET PO ONE (19:42)
[2024-04-09] MEDS: hydrALAZINE 20MG/ML 1ML VIAL IV SCH (19:43)
[2024-04-09 19:48] LABS: CHOLESTEROL RISK RATIO 2.7 (<5); HDL CHOLESTEROL 37.4 MG/DL (>40); LDL CHOLESTEROL 51.8 MG/DL (<100); NON-HDL-C 63.6 MG/DL
[2024-04-09] MEDS: PANTOPRAZOLE 40MG VIAL IV SCH (21:33)
[2024-04-09] MEDS: GABAPENTIN 300 MG CAP PO SCH (21:33)
[2024-04-09] MEDS: METOPROLOL TART 50 MG TAB PO SCH (21:34)
[2024-04-09 21:51] VITALS: BP 141/75; TEMP 98.1; O2SAT 98
[2024-04-09] MEDS: DOCUSATE SODIUM 100MG CAPSULE PO SCH (22:19)
[2024-04-09 23:46] VITALS: BP 130/63; TEMP 98.4; O2SAT 98
[2024-04-09] MEDS: cloNIDine 0.2 MG TAB PO SCH (23:54)
[2024-04-10] MEDS: SUCRALFATE SUSP 1GM/10ML UD PO SCH (00:06)
[2024-04-10 03:56] VITALS: BP 117/72; TEMP 98; O2SAT 98
[2024-04-10 06:09] LABS: BASO % 0.4 % (0.0-1.0); EOS % 0.7 % (0.0-3.0); HEMATOCRIT 48.7 % (42.0-52.0); LYMPH # 2.1 10^3/uL (1.5-5.0); LYMPH % 47.4 % (24.0-44.0); MEAN CORPUSCULAR HGB CONC 32.9 g/dl (32.0-36.5); MEAN CORPUSCULAR VOLUME 82.1 fl (80.0-96.0); MONO # 0.5 10^3/uL (0.0-0.8); MONO % 10.9 % (2.0-8.0); NEUTROPHILS # 1.8 10^3/uL (1.5-8.5); NEUTROPHILS % 40.4 % (36.0-66.0); PLATELET COUNT, AUTOMATED 207 10^3/uL (150-450); RED BLOOD COUNT 5.93 10^6/uL (4.30-6.10); WHITE BLOOD COUNT 4.5 10^3/uL (4.0-10.0)
[2024-04-10 06:20] LABS: BLOOD UREA NITROGEN 17 MG/DL (9-23); CALCIUM LEVEL 8.5 MG/DL (8.5-10.1); CARBON DIOXIDE LEVEL 28 MMOL/L (20-31); CHLORIDE LEVEL 107 MMOL/L (98-107); CREATININE FOR GFR 1.15 MG/DL (0.70-1.30); GLOMERULAR FILTRATION RATE > 60.0 (>56); GLUCOSE, FASTING 108 MG/DL (60-100); POTASSIUM SERUM 3.5 MMOL/L (3.5-5.1); SODIUM LEVEL 141 MMOL/L (136-145)
[2024-04-10 08:21] VITALS: BP 132/72; TEMP 97.8; O2SAT 94
[2024-04-10] MEDS ORDERED: GABA-282 PO (08:55)
[2024-04-10] MEDS ORDERED: LISI20TA33 PO (08:55)
[2024-04-10] MEDS ORDERED: PANT40TA29 PO (08:55)
[2024-04-10] MEDS: ENOXAPARIN 40MG/0.4ML SYRINGE (J1650 PER 10MG) SC SCH (10:04)
[2024-04-10] MEDS: ATORVASTATIN 20 MG TAB PO SCH (10:04)
[2024-04-10] MEDS: ASPIRIN 81MG CHEW TABLET PO SCH (10:04)
[2024-04-10 10:05] VITALS: BP 132/72
== END 2024-04-10 13:05 | disposition home or self-care (01) | DRG 199 ==
LOC: M ED 13:50 → M ED INP 17:35 → M PCU 22:16
PROVIDERS: ADMIT Internal Medicine Nephrology; ATTEND Internal Medicine Nephrology
DX: I16.0 Hypertensive urgency (principal); I69.351 Hemiplegia and hemiparesis following cerebral infarction affecting right dominant side; E78.5 Hyperlipidemia, unspecified; K21.9 Gastro-esophageal reflux disease without esophagitis; D49.0 Neoplasm of unspecified behavior of digestive system; Z79.82 Long term (current) use of aspirin; Z79.899 Other long term (current) drug therapy; I10 Essential (primary) hypertension

== ENCOUNTER 2024-04-25 16:32 | Observation (INO) | payer MEDICAID, OTHER ==
[~2024-04-25] VITALS: Ht 160 cm; Wt 71.8 kg
[~2024-04-25 16:32] MED LIST changes: +GABA-1172 PO; +LISI20TA33 PO; +SUCR1TAB56 PO
[2024-04-25 17:37] LABS: BASO % 0.8 % (0.0-1.0); EOS # 0.1 10^3/uL (0.0-0.5); EOS % 1.3 % (0.0-3.0); HEMATOCRIT 49.2 % (42.0-52.0); HEMOGLOBIN 16.3 g/dl (13.5-17.5); LYMPH # 2.9 10^3/uL (1.5-5.0); LYMPH % 54.6 % (24.0-44.0); MEAN CORPUSCULAR HGB CONC 33.1 g/dl (32.0-36.5); MEAN CORPUSCULAR VOLUME 81.6 fl (80.0-96.0); MONO # 0.5 10^3/uL (0.0-0.8); MONO % 9.9 % (2.0-8.0); NEUTROPHILS # 1.7 10^3/uL (1.5-8.5); NEUTROPHILS % 33.2 % (36.0-66.0); PLATELET COUNT, AUTOMATED 266 10^3/uL (150-450); RED BLOOD COUNT 6.03 10^6/uL (4.30-6.10); WHITE BLOOD COUNT 5.2 10^3/uL (4.0-10.0)
[2024-04-25 18:06] LABS: BLOOD UREA NITROGEN 14 MG/DL (9-23); CALCIUM LEVEL 9.3 MG/DL (8.5-10.1); CARBON DIOXIDE LEVEL 27 MMOL/L (20-31); CHLORIDE LEVEL 107 MMOL/L (98-107); CK-MB VALUE MASS 1.1 NG/ML (<3.6); CREATININE FOR GFR 0.92 MG/DL (0.70-1.30); GLOMERULAR FILTRATION RATE > 60.0 (>56); GLUCOSE, FASTING 94 MG/DL (60-100); POTASSIUM SERUM 3.8 MMOL/L (3.5-5.1); SODIUM LEVEL 140 MMOL/L (136-145)
[2024-04-25 18:07] LABS: CPK CREATINE PHOSPHOKINASE 174 U/L (46-171); MB/CK RELATIVE INDEX 0.63 (< OR =4)
[2024-04-25 20:11] LABS: CK-MB VALUE MASS 1.2 NG/ML (<3.6)
[2024-04-25 20:12] LABS: MB/CK RELATIVE INDEX 0.76 (< OR =4)
[2024-04-25] MEDS: hydrALAZINE 20MG/ML 1ML VIAL IV STA (20:51)
[2024-04-25] MEDS ORDERED: hydrALAZINE 20MG/ML 1ML VIAL IV ONE (22:45)
[2024-04-25] MEDS ORDERED: ACETAMINOPHEN 325 MG TAB PO PRN (22:50)
[2024-04-25] MEDS ORDERED: PANT40TA29 PO (23:01)
[2024-04-25] MEDS ORDERED: GABA-1172 PO (23:01)
[2024-04-25] MEDS: LABETALOL 200 MG TAB PO SCH (23:05)
[2024-04-25] MEDS ORDERED: HOME MED LIST COMPLETE! XX SCH (23:05)
[2024-04-26 00:17] VITALS: BP 176/98; TEMP 97.8; O2SAT 98
[2024-04-26] MEDS: PANTOPRAZOLE 40MG TAB (PROTONIX) PO SCH (00:39)
[2024-04-26 04:06] VITALS: BP 162/78; TEMP 97.1; O2SAT 98
[2024-04-26 06:23] LABS: ALBUMIN 3.6 G/DL (3.2-5.2); ALKALINE PHOSPHATASE 57 U/L (46-116); ALT/SGPT 35 U/L (7.0-40); AST/SGOT 18 U/L (<34); BILIRUBIN,TOTAL 1.2 MG/DL (0.3-1.2); BLOOD UREA NITROGEN 11 MG/DL (9-23); CALCIUM LEVEL 9.5 MG/DL (8.5-10.1); CARBON DIOXIDE LEVEL 26 MMOL/L (20-31); CHLORIDE LEVEL 106 MMOL/L (98-107); CREATININE FOR GFR 0.93 MG/DL (0.70-1.30); GLOMERULAR FILTRATION RATE > 60.0 (>56); GLUCOSE, FASTING 109 MG/DL (60-100); POTASSIUM SERUM 3.4 MMOL/L (3.5-5.1); SODIUM LEVEL 141 MMOL/L (136-145); TOTAL PROTEIN 6.6 G/DL (5.7-8.2)
[2024-04-26] MEDS: POTASSIUM CHLORIDE 10MEQ SR TABLET PO ONE (07:56)
[2024-04-26] MEDS: ATORVASTATIN 20 MG TAB PO SCH (07:56)
[2024-04-26] MEDS: ASPIRIN 81MG ENTERIC TABLET PO SCH (07:57)
[2024-04-26] MEDS: GABAPENTIN 300 MG CAP PO SCH (07:57)
[2024-04-26] MEDS: SUCRALFATE 1 GM TAB PO SCH (07:57)
[2024-04-26] MEDS: METOPROLOL TART 50 MG TAB PO SCH (07:58)
[2024-04-26 08:01] VITALS: BP 184/98
[2024-04-26] MEDS ORDERED: amLODIPine 5 MG TAB PO SCH (09:00)
[2024-04-26 11:17] VITALS: BP 160/100
[2024-04-26] MEDS ORDERED: ASPI81TAEC PO (12:02)
[2024-04-26] MEDS ORDERED: LISI10TA22 PO (12:02)
[2024-04-26] MEDS ORDERED: HYDR25TA87 PO (12:02)
[2024-04-26] MEDS ORDERED: AMLO1TAB24 PO (12:05)
[2024-04-26 12:27] VITALS: BP 160/100
[2024-04-26] MEDS: **hydrALAZINE HCL** 25 MG TAB PO ONE (12:27)
[2024-04-26] MEDS ORDERED: **hydrALAZINE HCL** 25 MG TAB PO SCH (16:00)
== END 2024-04-26 13:56 | disposition home health service (06) ==
LOC: M ED 16:32 → EDBD 16:32 → M ED INP 22:46 → M PCU 23:58
PROVIDERS: ADMIT Student in an Organized Health Care Education/Training Program; ATTEND Student in an Organized Health Care Education/Training Program
DX: I16.0 Hypertensive urgency (principal); I10 Essential (primary) hypertension; Z86.73 Personal history of transient ischemic attack (TIA), and cerebral infarction without residual deficits; E78.5 Hyperlipidemia, unspecified; K21.9 Gastro-esophageal reflux disease without esophagitis; G89.4 Chronic pain syndrome; Z79.82 Long term (current) use of aspirin; Z79.899 Other long term (current) drug therapy
CPT/HCPCS: 36415; 70450; 71045; 80048; 80053; 82088; 82550; 82553; 83735; 84244; 84484; 85025; 93005; 93041; 96374; 97161; 99285; J0360

== ENCOUNTER 2024-05-17 10:55 | Observation (INO) | payer OTHER ==
[~2024-05-17] VITALS: Ht 167.6 cm; Wt 73.1 kg
[~2024-05-17 10:55] MED LIST changes: +AMLO1TAB24 PO; +ASPI81TAEC PO; +HYDR25TA87 PO; +LISI10TA22 PO
[2024-05-17 11:56] LABS: BASO % 0.5 % (0.0-1.0); EOS # 0.1 10^3/uL (0.0-0.5); EOS % 1.4 % (0.0-3.0); HEMATOCRIT 48.8 % (42.0-52.0); HEMOGLOBIN 16.3 g/dl (13.5-17.5); LYMPH # 2.2 10^3/uL (1.5-5.0); LYMPH % 53.5 % (24.0-44.0); MEAN CORPUSCULAR HEMOGLOBIN 27.1 pg (27.0-33.0); MEAN CORPUSCULAR HGB CONC 33.4 g/dl (32.0-36.5); MEAN CORPUSCULAR VOLUME 81.1 fl (80.0-96.0); MONO # 0.4 10^3/uL (0.0-0.8); MONO % 8.9 % (2.0-8.0); NEUTROPHILS # 1.5 10^3/uL (1.5-8.5); NEUTROPHILS % 35.5 % (36.0-66.0); PLATELET COUNT, AUTOMATED 267 10^3/uL (150-450); RED BLOOD COUNT 6.02 10^6/uL (4.30-6.10); WHITE BLOOD COUNT 4.2 10^3/uL (4.0-10.0)
[2024-05-17 12:15] LABS: LIPASE 27 U/L (12-53)
[2024-05-17 12:17] LABS: ALBUMIN 3.8 G/DL (3.2-5.2); ALKALINE PHOSPHATASE 58 U/L (40-129); ALT/SGPT 38 U/L (7.0-40); AST/SGOT 16 U/L (<34); BILIRUBIN,DIRECT 0.4 MG/DL (<0.4); BILIRUBIN,TOTAL 1.2 MG/DL (0.3-1.2); BLOOD UREA NITROGEN 11 MG/DL (9-23); CALCIUM LEVEL 9.7 MG/DL (8.5-10.1); CARBON DIOXIDE LEVEL 28 MMOL/L (20-31); CHLORIDE LEVEL 105 MMOL/L (98-107); CK-MB VALUE MASS < 1.0 NG/ML (<3.6); GLOMERULAR FILTRATION RATE > 60.0 (>56); GLUCOSE, FASTING 114 MG/DL (60-100); POTASSIUM SERUM 3.5 MMOL/L (3.5-5.1); SODIUM LEVEL 139 MMOL/L (136-145); TOTAL PROTEIN 7.1 G/DL (5.7-8.2)
[2024-05-17 12:19] LABS: THYROID STIMULATING HORMONE 0.797 uIU/ML (0.55-4.78)
[2024-05-17 12:23] LABS: CPK CREATINE PHOSPHOKINASE 136 U/L (46-171); MB/CK RELATIVE INDEX 0.73 (< OR =4)
[2024-05-17] MEDS: **hydrALAZINE** 50 MG TAB PO ONE (13:03)
[2024-05-17] MEDS: amLODIPine 5 MG TAB PO ONE (13:03)
[2024-05-17 13:17] LABS: CK-MB VALUE MASS < 1.0 NG/ML (<3.6)
[2024-05-17 13:21] LABS: CPK CREATINE PHOSPHOKINASE 138 U/L (46-171); MB/CK RELATIVE INDEX 0.72 (< OR =4)
[2024-05-17] MEDS: hydrALAZINE 20MG/ML 1ML VIAL IV STA (13:32)
[2024-05-17] MEDS ORDERED: MOM 30ML SUSPENSION UDC PO PRN (14:05)
[2024-05-17] MEDS ORDERED: MAALOX 30 ML SUSP *UDC PO PRN (14:05)
[2024-05-17] MEDS ORDERED: AMLO1TAB24 PO (14:46)
[2024-05-17] MEDS ORDERED: LISI30TA4 PO (14:46)
[2024-05-17] MEDS ORDERED: HYDR25TA87 PO (14:46)
[2024-05-17] MEDS ORDERED: HOME MED LIST COMPLETE! XX SCH (14:50)
[2024-05-17] MEDS ORDERED: **hydrALAZINE HCL** 25 MG TAB PO SCH (16:00)
[2024-05-17 16:15] VITALS: BP 210/112; TEMP 98.4; O2SAT 96
[2024-05-17] MEDS: **hydrALAZINE** 50 MG TAB PO SCH (16:23)
[2024-05-17 17:31] VITALS: BP 198/100
[2024-05-17] MEDS: hydrALAZINE 20MG/ML 1ML VIAL IV PRN (18:07)
[2024-05-17 18:58] VITALS: BP 180/98
[2024-05-17 20:00] VITALS: BP 152/92; TEMP 98.5; O2SAT 96
[2024-05-17] MEDS: METOPROLOL TART 50 MG TAB PO SCH (21:02)
[2024-05-17] MEDS: GABAPENTIN 300 MG CAP PO SCH (21:03)
[2024-05-17] MEDS: ACETAMINOPHEN 325 MG TAB PO PRN (21:11)
[2024-05-18] VITALS: BP 132/98; TEMP 98.7; O2SAT 98
[2024-05-18 03:42] VITALS: BP 138/98; TEMP 98.7; O2SAT 96
[2024-05-18 07:49] LABS: BASO % 0.5 % (0.0-1.0); HEMATOCRIT 52.7 % (42.0-52.0); HEMOGLOBIN 17.5 g/dl (13.5-17.5); LYMPH # 2.3 10^3/uL (1.5-5.0); LYMPH % 56.4 % (24.0-44.0); MEAN CORPUSCULAR HEMOGLOBIN 26.9 pg (27.0-33.0); MEAN CORPUSCULAR HGB CONC 33.2 g/dl (32.0-36.5); MEAN CORPUSCULAR VOLUME 81.1 fl (80.0-96.0); MONO # 0.4 10^3/uL (0.0-0.8); MONO % 8.8 % (2.0-8.0); NEUTROPHILS # 1.3 10^3/uL (1.5-8.5); PLATELET COUNT, AUTOMATED 270 10^3/uL (150-450)
[2024-05-18] MEDS: amLODIPine 5 MG TAB PO SCH (08:10)
[2024-05-18 08:11] VITALS: BP 170/96
[2024-05-18 08:18] LABS: BLOOD UREA NITROGEN 12 MG/DL (9-23); CALCIUM LEVEL 9.8 MG/DL (8.5-10.1); CARBON DIOXIDE LEVEL 29 MMOL/L (20-31); CHLORIDE LEVEL 106 MMOL/L (98-107); CREATININE FOR GFR 1.14 MG/DL (0.70-1.30); GLOMERULAR FILTRATION RATE > 60.0 (>56); GLUCOSE, FASTING 94 MG/DL (60-100); POTASSIUM SERUM 3.9 MMOL/L (3.5-5.1); SODIUM LEVEL 142 MMOL/L (136-145)
[2024-05-18] MEDS ORDERED: HYDR50TA46 PO (09:03)
[2024-05-18 09:32] VITALS: BP 152/92
[2024-05-18] MEDS ORDERED: ENOXAPARIN 40MG/0.4ML SYRINGE (J1650 PER 10MG) SC SCH (21:00)
== END 2024-05-18 11:49 | disposition home or self-care (01) ==
LOC: EDBD 10:55 → M ED 10:55 → M ED INP 10:56 → M PCU 16:04
PROVIDERS: ADMIT Student in an Organized Health Care Education/Training Program; ATTEND Student in an Organized Health Care Education/Training Program
DX: I16.0 Hypertensive urgency (principal); Z86.73 Personal history of transient ischemic attack (TIA), and cerebral infarction without residual deficits; E78.5 Hyperlipidemia, unspecified; K21.9 Gastro-esophageal reflux disease without esophagitis; I10 Essential (primary) hypertension; Z79.82 Long term (current) use of aspirin; Z79.899 Other long term (current) drug therapy
CPT/HCPCS: 36415; 71045; 73630; 80047; 80048; 80076; 82550; 82553; 83690; 84439; 84443; 84484; 85025; 93005; 93041; 94760; 96374; 96376; 99285; J0360

== ENCOUNTER → 2024-05-18 | Outpatient (CLI) | payer OTHER, SELFPAY ==
[~2024-05-18] MED LIST changes: +LISI30TA4 PO
== END ==
LOC: M RAD 12:08
PROVIDERS: ATTEND Family Medicine
DX: M79.671 Pain in right foot (principal)

== ENCOUNTER 2024-07-05 07:59 | Emergency (ER) | payer OTHER, SELFPAY ==
[2024-07-05 08:25] LABS: BASO % 0.7 % (0.0-1.0); EOS # 0.1 10^3/uL (0.0-0.5); EOS % 1.2 % (0.0-3.0); HEMATOCRIT 49.3 % (42.0-52.0); HEMOGLOBIN 16.4 g/dl (13.5-17.5); LYMPH # 2.1 10^3/uL (1.5-5.0); LYMPH % 48.1 % (24.0-44.0); MEAN CORPUSCULAR HEMOGLOBIN 26.7 pg (27.0-33.0); MEAN CORPUSCULAR HGB CONC 33.3 g/dl (32.0-36.5); MEAN CORPUSCULAR VOLUME 80.2 fl (80.0-96.0); MONO # 0.3 10^3/uL (0.0-0.8); MONO % 6.8 % (2.0-8.0); NEUTROPHILS # 1.8 10^3/uL (1.5-8.5); PLATELET COUNT, AUTOMATED 307 10^3/uL (150-450); RED BLOOD COUNT 6.15 10^6/uL (4.30-6.10); WHITE BLOOD COUNT 4.3 10^3/uL (4.0-10.0)
[2024-07-05 08:37] LABS: INR 1.01; PARTIAL THROMBOPLASTIN TIME 24.3 SECONDS (24.8-34.2); PROTHROMBIN TIME 13.6 SECONDS (12.5-14.5)
[2024-07-05 08:52] LABS: LIPASE 28 U/L (12-53)
[2024-07-05 08:54] LABS: ALBUMIN 3.8 G/DL (3.2-5.2); ALKALINE PHOSPHATASE 70 U/L (40-129); ALT/SGPT 60 U/L (7.0-40); AST/SGOT 20 U/L (<34); BILIRUBIN,DIRECT 0.3 MG/DL (<0.4); BILIRUBIN,TOTAL 0.6 MG/DL (0.3-1.2); BLOOD UREA NITROGEN 17 MG/DL (9-23); CALCIUM LEVEL 9.7 MG/DL (8.5-10.1); CARBON DIOXIDE LEVEL 23 MMOL/L (20-31); CHLORIDE LEVEL 107 MMOL/L (98-107); CK-MB VALUE MASS < 1.0 NG/ML (<3.6); CPK CREATINE PHOSPHOKINASE 83 U/L (46-171); CREATININE FOR GFR 0.96 MG/DL (0.70-1.30); GLOMERULAR FILTRATION RATE > 60.0 (>56); GLUCOSE, FASTING 148 MG/DL (60-100); POTASSIUM SERUM 3.7 MMOL/L (3.5-5.1); SODIUM LEVEL 140 MMOL/L (136-145); TOTAL PROTEIN 7.2 G/DL (5.7-8.2)
[2024-07-05 08:56] LABS: FREE T4 1.34 NG/DL (0.89-1.76); THYROID STIMULATING HORMONE 1.304 uIU/ML (0.55-4.78)
[2024-07-05] MEDS ORDERED: ISOVUE-370 76% 100ML VIAL As Ordered ONE (09:13)
[2024-07-05] MEDS: MAALOX 30 ML SUSP *UDC PO ONE (09:52)
[2024-07-05] MEDS: PANTOPRAZOLE 40MG VIAL IV ONE (09:52)
[2024-07-05] MEDS: LIDOCAINE VISCOUS 2% SOLN 15ML UDC PO ONE (09:52)
[2024-07-05 09:56] LABS: CK-MB VALUE MASS < 1.0 NG/ML (<3.6); CPK CREATINE PHOSPHOKINASE 157 U/L (46-171); MB/CK RELATIVE INDEX 0.63 (< OR =4)
[2024-07-05 13:00] VITALS: BP 147/94
[2024-07-05] MEDS ORDERED: PROT1TAB2 PO (13:23)
[2024-07-05 13:30] VITALS: TEMP 98; O2SAT 99
== END 2024-07-05 14:14 | disposition home or self-care (01) ==
LOC: EDBD 07:59 → M ED 07:59
DX: K21.9 Gastro-esophageal reflux disease without esophagitis (principal); I51.7 Cardiomegaly; I10 Essential (primary) hypertension; E11.9 Type 2 diabetes mellitus without complications; Z79.82 Long term (current) use of aspirin; Z79.899 Other long term (current) drug therapy
CPT/HCPCS: 70491; 71045; 71275; 80048; 80076; 82550; 82553; 83690; 84439; 84443; 84484; 85025; 85610; 85730; 93005; 93041; 94760; 96374; 99285; J2470; Q9967